=== PATIENT | male | born 1990 | race Two or more races ===

== ENCOUNTER 2017-01-13 20:47 | Emergency (ER) | payer OTHER ==
[2017-01-13 21:52] LABS: ALB/GLOB RATIO 1.3 (>1.0); ALBUMIN 4.1 gm/dL (3.5-5.7); CALCIUM 8.8 mg/dL (8.6-10.3)
[2017-01-13 22:01] LABS: ABSOLUTE NEUTROPHIL COUNT 8.7 K/mm3 (1.8-7.7); BASO # 0.1 K/mm3 (0.0-0.2); BASO % 0.4 % (0.2-1.0); EOS # 0.2 (0.0-0.5); EOS % 1.3 % (0.9-2.9); HEMATOCRIT 37.4 % (32.0-52.0); HEMOGLOBIN 12.5 gm/l (14.0-18.0); IMM NEUT% 0.3 % (0-1); LYMPH % 16.7 % (15-45); MEAN CELL VOLUME 84.4 fl (80.0-94.0); MEAN CORPUSCULAR HEMOGLOBIN 28.2 pg (27.0-31.0); MEAN CORPUSCULAR HGB CONC 33.4 g/dl (33.0-37.0); MEAN PLATELET VOLUME 10.4 fl (7.4-10.4); MONO # 0.9 (0.0-0.8); MONO % 7.6 % (4-12); NEUT % 73.7 % (43-75); PLATELET COUNT 218 K/mm3 (130-400); RED CELL DISTRIBUTION WIDTH 12.6 % (11.5-14.5)
[2017-01-13 22:02] LABS: SPECIFIC GRAVITY 1.025 (1.001-1.030); URINE BILIRUBIN NEGATIVE (NEGATIVE); URINE BLOOD NEGATIVE (NEGATIVE); URINE GLUCOSE (UA) NEGATIVE (NEGATIVE); URINE LEUKOCYTE ESTERASE NEGATIVE (NEGATIVE); URINE NITRITE NEGATIVE (NEGATIVE); URINE PROTEIN NEGATIVE (NEGATIVE); URINE UROBILINOGEN NORMAL (0-1 mg/dl)
[2017-01-13 22:08] LABS: URINE APPEARANCE CLEAR; URINE COLOR YELLOW
[2017-01-13] MEDS ORDERED: ACETAMINOPHEN 500 MG TABLET ONE (22:30)
== END 2017-01-13 23:46 | disposition home or self-care (01) ==
LOC: ED 20:47
DX: M79.1 Myalgia (principal); E86.0 Dehydration; R07.9 Chest pain, unspecified; R42 Dizziness and giddiness